=== PATIENT | male | born 1965 | race Hispanic/Latino ===

== ENCOUNTER 2018-09-18 13:52 | Inpatient (IN) | payer SELFPAY ==
[~2018-09-18 13:52] MED LIST: ISOVUE-370 76%-LOCM 1 ML ONE; Iopamidol 300 61% 100 ML VIAL FS ONE; Iopamidol 300 61% 50 ML VIAL FS ONE
[2018-09-18 14:13] LABS: #Eosinphils 0.1 thou/uL (0.0-0.7); #Lymphocytes 2.4 thou/uL (1.20-3.40); #Neutrophils 11.7 thou/uL (1.40-6.50); %Basophils 0.3 % (0.0-1.0); %Eosinophils 0.6 % (0.0-10.0); %Lymphocytes 15.8 % (21.0-51.0); %Monocytes 6.5 % (0.0-10.0); %Neutrophils 76.9 % (42.0-75.0); Hemoglobin 16.1 g/dL (14.0-18.0); Mean Corpuscular HGB CONC 32.9 g/dL (32.0-36.0); Mean Corpuscular Volume 97.4 fL (78.0-98.0); Mean Platelet Volume 7.8 fL (7.4-10.4); Platelet Count 241 thou/uL (130-400); RBC Distribution Width 11.8 % (11.5-14.5); Red Blood Cell (RBC) Count 5.03 mill/uL (4.70-6.10); White Blood Cell (WBC) Count 15.2 thou/uL (4.8-10.8)
[2018-09-18 14:19] LABS: INR-International Normal Ratio 1.1; PTT 29.5 SEC (22.9-36.1); Prothrombin Time 14.3 SEC (12.0-14.7)
[2018-09-18 14:34] LABS: ALT (SGPT) 17 U/L (8-55); AST (SGOT) 19 U/L (5-34); Albumin 4.2 g/dL (3.5-5.0); Alkaline Phosphatase 83 U/L (40-150); Anion Gap 16 mmol/L (10-20); BUN (Urea Nitrogen) 12 mg/dL (8.4-25.7); Bilirubin, Total 0.6 mg/dL (0.2-1.2); Calc. Creatinine Clearance 0 mL/min (70-130); Calcium 9.4 mg/dL (7.8-10.44); Carbon Dioxide 24 mmol/L (22-29); Chloride 104 mmol/L (98-107); Estimated GFR-MDRD Greater than 90; Globulin 3.1 g/dL (2.4-3.5); Glucose 146 mg/dL (70-105); Lipase 29 U/L (8-78); Potassium 3.8 mmol/L (3.5-5.1); Protein, Total 7.3 g/dL (6.0-8.3); Sodium 140 mmol/L (136-145)
[2018-09-18] MEDS ORDERED: Fentanyl 100 MCG/2 ML VIAL ONE ×4 (14:52→17:10)
--- NOTE | 2018-09-18 14:55 | RAD ---
PELVIS 1 VIEW: HISTORY: Trauma. COMPARISON: CT abdomen and pelvis same day. FINDINGS: There is widening of the pubic symphysis. There is widening of the right posterior and anterior SI j oint. Fractures of the right transverse processes of L3, L4, L5 and left L1-L3. IMPRESSION: AP 3 compression fracture of the pelvis with widened pubic symphysis as well as right anterior and po sterior sacroiliac joints. POS: [facility]
--- NOTE | 2018-09-18 14:57 | RAD ---
AP PELVIS 1 VIEW: HISTORY: Post reduction. COMPARISON: 09/18/2018 prior study and abdomen and pelvic CT scan. FINDINGS: Contrast media is noted within the collecting systems and urinary bladder. There is still some abnor mal widening of the pubic symphysis and right SI joint, but less prominent than on the initial study of 09/18/2018 at 2:05 p.m. IMPRESSION: Abnormal widening of the symphysis pubis and right sacroiliac joint but slightly improved from prior study. Iodinated contrast within the renal upper collecting systems, ureters, and urinary bladder. POS: [facility]
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
[2018-09-18] MEDS ORDERED: Heparin 10,000 UNITS/ 10 ML VIAL ONE (15:07)
[2018-09-18] MEDS ORDERED: Lidocaine 1% PF 5 ML VIAL ONE (15:07)
[2018-09-18] MEDS ORDERED: PHENYLEPHRINE-NS 100 MCG/ML 10 ML SYRINGE ONE (15:07)
[2018-09-18] MEDS ORDERED: PROPOFOL 200 MG/20 ML VIAL ONE (15:07)
[2018-09-18] MEDS ORDERED: Rocuronium Bromide 10 MG/ML (10ML VIAL) ONE (15:07)
[2018-09-18] MEDS ORDERED: Glycopyrrolate 0.2 MG/ML 5 ML SYRINGE ONE (15:08)
[2018-09-18] MEDS ORDERED: ePHEDrine 50 MG/ML VIAL ONE (15:08)
[2018-09-18] MEDS ORDERED: Vecuronium 10 MG VIAL ONE (15:08)
[2018-09-18] MEDS ORDERED: Ondansetron PF 4 MG/2 ML Vial ONE (15:08)
[2018-09-18] MEDS ORDERED: Ketorolac Tromethamine 30 MG/ML VIAL ONE (15:08)
[2018-09-18] MEDS ORDERED: Heparin 5,000 UNITS/ML VIAL ONE (16:01)
[2018-09-18] MEDS ORDERED: Famotidine/PF 20 mg/2ml Vial ONE (16:12)
[2018-09-18] MEDS ORDERED: Heparin 10,000 UNITS/1 ML VIAL 30,000 UNITS in Sodium Chloride 0.9% 1,000 ML IVPB SCH (16:45)
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
[2018-09-18] MEDS ORDERED: Albumin 5% 500 ML ONE (17:02)
[2018-09-18] MEDS ORDERED: Midazolam HCl 2 mg/2 ml Vial ONE (17:10)
[2018-09-18] MEDS ORDERED: Protamine Sulfate 50 MG/5 ML VIAL ONE (17:48)
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
[2018-09-18] MEDS ORDERED: Ampicillin/Sulbactam 3 GM in Sodium Chloride 0.9% 100 ML IVPB SCH (18:00)
[2018-09-18] MEDS ORDERED: Dextrose 50% Abboject 50 ML SYRINGE SLOW IVP PRN (20:52)
[2018-09-18] MEDS ORDERED: Dextrose 5% in Water 1,000 ML IV PRN (20:52)
[2018-09-18] MEDS ORDERED: HumaLOG 300 UNITS/3 ML VIAL SC PRN (20:52)
[2018-09-18] MEDS ORDERED: Ondansetron PF 4 MG/2 ML Vial IVP PRN (20:57)
[2018-09-18] MEDS ORDERED: diphenhydrAMINE 50 MG/ML VIAL IVP PRN (20:57)
[2018-09-18] MEDS ORDERED: diphenhydrAMINE 25 MG CAP PO PRN (20:57)
[2018-09-18] MEDS ORDERED: diphenhydrAMINE 50 MG/ML VIAL IM PRN (20:57)
[2018-09-18] MEDS ORDERED: Promethazine HCl 25 MG/ML VIAL IM PRN (20:57)
[2018-09-18] MEDS ORDERED: Naloxone HCl 0.4 mg/ml Vial IV PRN (20:57)
[2018-09-18] MEDS ORDERED: Communication Order-Pharmacy FS SCH (21:00)
--- NOTE | 2018-09-18 21:13 | RAD ---
SEVENTEEN FLUOROSCOPIC SPOT IMAGES OF THE PELVIS: INDICATIONS: Possible foreign body in the pelvis and abdominal cavity. FINDINGS: The first images demonstrate instrumentation involving the symphysis pubis. There is a suspected jessica gical sponge seen to the right of midline, in the lower pelvis. There is a Tate catheter projecting in the region of the bladder. Subsequent images demonstrate removal of the sponge. The Tate azalea ter and instrumentation involving the symphysis pubis is unchanged. Subsequent images of the abdomen demonstrate a nonobstructive bowel gas pattern. There is a surgical drain within the lower pelvis. There is an ostomy in the right lower quadrant of the abdomen. Total fluoroscopic time is 18.8 seconds. Total exposure is 4.83 mGy. IMPRESSION: 1. Intraoperative C-arm evaluation for intraabdominal and intrapelvic foreign body. There was a lap arotomy sponge present within the right aspect of the pelvis that was removed on subsequent images. 2. Intraabdominal drain and right lower quadrant ostomy. 3. Interval operative fixation of the symphysis pubis when compared to prior Anterior-posterior view of the pelvis, dated 09/18/2018. POS: [facility]
[2018-09-18] MEDS: HYDROmorphone 10 mg/100 ml CADD IVPB PRN (21:35)
[2018-09-18] MEDS: Lactated Ringer's 1,000 ML IV SCH (21:42)
[2018-09-18 22:23] VITALS: BMI 33.3
[2018-09-18] MEDS: Oxazepam 10 MG CAP PO SCH (22:28)
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
[2018-09-19] MEDS: Ketorolac Tromethamine 30 MG/ML VIAL IVP SCH ×5 (00:40→23:46)
[2018-09-19 04:48] LABS: Phosphorus 3.3 mg/dL (2.3-4.7)
[2018-09-19 04:56] LABS: #Lymphocytes 0.7 thou/uL (1.20-3.40); #Monocytes 0.6 thou/uL (0.11-0.59); #Neutrophils 9.5 thou/uL (1.40-6.50); %Basophils 0.1 % (0.0-1.0); %Eosinophils 0.1 % (0.0-10.0); %Lymphocytes 6.4 % (21.0-51.0); %Monocytes 5.2 % (0.0-10.0); %Neutrophils 88.3 % (42.0-75.0); ALT (SGPT) 14 U/L (8-55); AST (SGOT) 21 U/L (5-34); Albumin 3.7 g/dL (3.5-5.0); Alkaline Phosphatase 48 U/L (40-150); Anion Gap 13 mmol/L (10-20); BUN (Urea Nitrogen) 12 mg/dL (8.4-25.7); Bilirubin, Total 1.2 mg/dL (0.2-1.2); Calc. Creatinine Clearance 100 mL/min (70-130); Calcium 8.3 mg/dL (7.8-10.44); Carbon Dioxide 23 mmol/L (22-29); Chloride 107 mmol/L (98-107); Estimated GFR-MDRD 81; Globulin 2.4 g/dL (2.4-3.5); Glucose 159 mg/dL (70-105); Hemoglobin 12.7 g/dL (14.0-18.0); Magnesium 1.5 mg/dL (1.6-2.6); Mean Corpuscular HGB CONC 33.5 g/dL (32.0-36.0); Mean Corpuscular Hemoglobin 32.7 pg (27.0-31.0); Mean Corpuscular Volume 97.4 fL (78.0-98.0); Platelet Count 202 thou/uL (130-400); Potassium 4.2 mmol/L (3.5-5.1); Protein, Total 6.1 g/dL (6.0-8.3); RBC Distribution Width 11.8 % (11.5-14.5); Sodium 139 mmol/L (136-145); White Blood Cell (WBC) Count 10.8 thou/uL (4.8-10.8)
[2018-09-19] MEDS: Lactated Ringer's 1,000 ML IV SCH ×3 (05:23→22:52)
[2018-09-19] MEDS ORDERED: Magnesium 2 GM/50 ML 2 GM in Premix Bag 1 BAG IVPB SCH ×2 (06:30→09:00)
[2018-09-19] MEDS ORDERED: Potassium Phosphate 15 MMOL in Sodium Chloride 0.9% 250 ML 250 ML IVPB SCH (07:30)
[2018-09-19] MEDS: Enoxaparin Sodium 40 MG/0.4 ML SYRINGE SC SCH (08:40)
[2018-09-19] MEDS: Thiamine 100 MG TAB PO SCH (08:40)
[2018-09-19] MEDS: Oxazepam 10 MG CAP PO SCH ×3 (08:40→20:05)
[2018-09-19] MEDS: Folic Acid 1 MG TAB PO SCH (08:40)
--- NOTE | 2018-09-19 11:47 | RAD ---
RETROGRADE URETHROGRAM: HISTORY: Patient with pelvic fracture. Evaluate for urethral injury. RADIATION DOSIMETRY: 2.5 minutes of fluoroscopy and DAP of uGy*^cm2. FINDINGS: The meatus of the penis was cleansed using a Betadine solution. The patient inserted a MissingLINK e tip-type adapter into the distal urethra at the tip of the penis. Retrograde injection was perform ed. Contrast filled the penile urethra and bulbous urethra. Contrast could not be retroflexed into the membranous or prostatic urethra. In addition, once the penile urethra was noted to be free of si gnificant injury, a 14 Serbian Tate catheter was introduced. Again, attempts were made to retrograde fill the more proximal portions of the urethra including the membranous and prostatic urethra. Desp ite several attempts, this was unsuccessful. Findings were discussed with Dr. Arreola. IMPRESSION: Normal-appearing bulbous and penile urethra with nonvisualization of the more proximal portion of the urethra. Contrast was seen filling the urinary bladder. No definite evidence of leakage seen on fl uoroscopy. POS: [facility] [place]
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
--- NOTE | 2018-09-19 12:54 | OP ---
DATE OF PROCEDURE: 09/18/2018 PREOPERATIVE DIAGNOSIS: Blunt abdominal trauma with right common iliac artery dissection and occlusion. PROCEDURES: Exploratory laparotomy, replace segment of common iliac artery with a 10 mm Hemashield graft. ASSISTANTS: Dr. Zamarripa and Dr. Arreola. ESTIMATED BLOOD LOSS: 300. DESCRIPTION OF PROCEDURE: After adequate anesthesia had been obtained, the patient was prepped and draped. Dr. Lockhart had a placed a Tate catheter prior to this and abdominal midline incision was then carried out from above to below the umbilicus. Abdominal cavity was entered and there was noted to be some blood in the abdomen. Brief exploration by Dr. Arreola demonstrated disruption of the sigmoid mesentery as well as some deserialization of the sigmoid colon. At that time, the structures were packed out of the way with a self retraining retractor and the right common iliac artery was exposed, carried down to the junction of the internal and external iliac arteries. After 5000 units of heparin, clamps were applied and the common iliac artery was dissected. Fresh thrombus was removed and then there was good backbleeding from the internal as well as external iliac arteries. After this had been done, the incision was carried proximally and distally to avoid any further disrupted intima. There was some plaque formation distally, which ultimately led to some difficulty with hemostasis. Proximal anastomosis was then performed with the Hemashield graft using a running 5-0 Prolene suture and a similar anastomosis completed distally. Following completion of that, multiple sutures were required posteriorly in the distal anastomosis to assist with closure where the graft and plaque are adjacent to each other. Following this, heparin was reversed with protamine. After obtaining good hemostasis, reperitonealization was carried out. Following this, I assisted Dr. Arreola with further abdominal exploration. At that time, the sigmoid colon was divided proximal and distal to the injury and removed from the field with stapler. The small bowel was run and a small rent in the small bowel was identified and closed with 2 layers of Lembert suture. Following this, Dr. Arreola and Dr. Reeder completed the procedure. Job ID: [id number]
[2018-09-19] MEDS: cefOXitin 2 GM in Sodium Chloride 0.9% 100 ML IVPB SCH ×2 (13:24→22:52)
[2018-09-20] MEDS: cefOXitin 2 GM in Sodium Chloride 0.9% 100 ML IVPB SCH (05:00)
[2018-09-20] MEDS: Ketorolac Tromethamine 30 MG/ML VIAL IVP SCH ×4 (05:02→23:16)
[2018-09-20 05:12] LABS: #Lymphocytes 0.6 thou/uL (1.20-3.40); #Monocytes 0.4 thou/uL (0.11-0.59); #Neutrophils 6.1 thou/uL (1.40-6.50); %Basophils 0.2 % (0.0-1.0); %Eosinophils 0.1 % (0.0-10.0); %Lymphocytes 8.8 % (21.0-51.0); %Monocytes 5.7 % (0.0-10.0); %Neutrophils 85.2 % (42.0-75.0); Hemoglobin 10.2 g/dL (14.0-18.0); Mean Corpuscular Hemoglobin 32.8 pg (27.0-31.0); Mean Corpuscular Volume 99.4 fL (78.0-98.0); Mean Platelet Volume 7.7 fL (7.4-10.4); Platelet Count 142 thou/uL (130-400); RBC Distribution Width 11.7 % (11.5-14.5); White Blood Cell (WBC) Count 7.1 thou/uL (4.8-10.8)
[2018-09-20 05:37] LABS: Anion Gap 10 mmol/L (10-20); BUN (Urea Nitrogen) 14 mg/dL (8.4-25.7); Calc. Creatinine Clearance 132 mL/min (70-130); Calcium 8.5 mg/dL (7.8-10.44); Carbon Dioxide 27 mmol/L (22-29); Chloride 105 mmol/L (98-107); Estimated GFR-MDRD Greater than 90; Glucose 127 mg/dL (70-105); Magnesium 2.3 mg/dL (1.6-2.6); Phosphorus 1.9 mg/dL (2.3-4.7); Potassium 3.8 mmol/L (3.5-5.1); Sodium 138 mmol/L (136-145)
[2018-09-20] MEDS: Lactated Ringer's 1,000 ML IV SCH ×3 (06:16→23:17)
[2018-09-20] MEDS ORDERED: Potassium Phosphate 30 MMOL in Sodium Chloride 0.9% 500 ML IVPB SCH (07:15)
[2018-09-20] MEDS ORDERED: Potassium Phosphate 30 MMOL in Sodium Chloride 0.9% 250 ML 250 ML IVPB SCH (07:30)
--- NOTE | 2018-09-20 07:53 | EKG ---
Test Reason : Blood Pressure : / mmHG Vent. Rate : 096 BPM Atrial Rate : 096 BPM P-R Int : 132 ms QRS Dur : 094 ms QT Int : 316 ms P-R-T Axes : 040 017 011 degrees QTc Int : 399 ms Normal sinus rhythm Nonspecific T wave abnormality Abnormal ECG No previous ECGs available Confirmed by RIA ROBERTS ([id number]) on 09/20/2018 7:53:10 AM Referred By: ANDREW Confirmed By:RIA ROBERTS
[2018-09-20] MEDS ORDERED: Fentanyl 100 MCG/2 ML VIAL ONE (08:53)
[2018-09-20] MEDS ORDERED: CEFAZOLIN/Water 2 GM/20 ML SYRINGE SLOW IVP SCH (09:30)
[2018-09-20] MEDS: Folic Acid 1 MG TAB PO SCH (09:31)
[2018-09-20] MEDS: Enoxaparin Sodium 40 MG/0.4 ML SYRINGE SC SCH (09:31)
[2018-09-20] MEDS: Oxazepam 10 MG CAP PO SCH ×3 (09:31→20:41)
[2018-09-20] MEDS: Thiamine 100 MG TAB PO SCH (09:32)
[2018-09-20] MEDS ORDERED: CEFAZOLIN 2 GM in Premix Bag 1 BAG IVPB SCH (10:15)
--- NOTE | 2018-09-20 10:18 | PRG ---
DATE OF SERVICE: 09/20/2018 SUBJECTIVE: Mr. Florence is a 53-year-old man, who suffered a crush injury to the lower abdomen and pelvis. He is postoperative day #2, status post repair of right iliac artery injury, ORIF of pubic symphysis fractures, segmental sigmoidectomy, end colostomy and enterorrhaphy x1. The patient is awake and alert today. He reports adequate pain control. Urinary output is adequate. OBJECTIVE: VITAL SIGNS: Today includes blood pressure 135/83, pulse is 116, temperature is 98.3 degrees Fahrenheit, which is the maximum temperature in the last 24 hours, respiratory rate is 15, oxygen saturation is 97% on 2 L by nasal cannula oxygen. HEART: Reveals regular rate with sinus tachycardia. No murmurs or gallops auscultated. LUNGS: Clear to auscultation bilaterally. Breathing regular and unlabored. ABDOMEN: Soft and nondistended. Incision is intact, clean, dry. Colostomy is viable. No output of stool or gas at the moment. Wiliam-Francois drain returns scant output of serous fluid. LABORATORY FINDINGS: Today include a CBC with 7100 white blood cells, hemoglobin and hematocrit 10.2 and 30.8 respectively and platelet count is 142,000. Metabolic profile: Sodium 138, potassium is 3.8, chloride is 105, bicarb is 27, BUN 14, creatinine is 0.73, glucose is 127, magnesium 2.3, phosphorus is 1.9. IMPRESSION: 1. Post injury and postoperative day #2, status post crush injury to the lower abdomen and pelvis and repair of right iliac, pubic symphysis, sigmoid and small-bowel injuries. 2. Stable acute blood loss anemia. 3. Acute hypomagnesemia. 4. Acute hypokalemia. PLAN: 1. Correct abnormal electrolytes. 2. The patient is hemodynamically stable to proceed to surgery for completion of the staged repair of the pelvic fractures. 3. Above findings and plan discussed with the patient through a bull riveter. 4. He indicates understanding of the information given. I have answered his questions. Job ID: [id number]
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
--- NOTE | 2018-09-20 12:22 | RAD ---
THREE VIEWS PELVIS: Date: 09-20-18 Provided Clinical History: ORIF pelvis. FINDINGS: Correlation is made with the pelvic radiographs performed 09-18-18. Interval placement of cannulated, threaded screws traversing the right sacroiliac joint. Symphyseal p late and screws fixation is redemonstrated. IMPRESSION: As above. POS: [facility]
[2018-09-20] MEDS: cefOXitin Sodium/Dextrose,Iso 2 GM in Premix Bag 1 BAG IVPB SCH ×2 (14:15→21:23)
[2018-09-20] MEDS: HYDROmorphone 10 mg/100 ml CADD IVPB PRN (14:52)
[2018-09-20] MEDS ORDERED: Ketorolac Tromethamine 30 MG/ML VIAL ONE (15:27)
[2018-09-20] MEDS ORDERED: PROPOFOL 200 MG/20 ML VIAL ONE (15:27)
[2018-09-20] MEDS ORDERED: Dexamethasone 20 MG/5 ML VIAL ONE (15:27)
[2018-09-20] MEDS ORDERED: Rocuronium Bromide 10 MG/ML (10ML VIAL) ONE (15:27)
[2018-09-20] MEDS ORDERED: Glycopyrrolate 0.2 MG/ML 5 ML SYRINGE ONE (15:27)
[2018-09-20] MEDS ORDERED: Ondansetron PF 4 MG/2 ML Vial ONE (15:27)
[2018-09-20] MEDS ORDERED: PHENYLEPHRINE-NS 100 MCG/ML 10 ML SYRINGE ONE (15:27)
[2018-09-21] MEDS: cefOXitin Sodium/Dextrose,Iso 2 GM in Premix Bag 1 BAG IVPB SCH ×3 (05:01→21:08)
[2018-09-21] MEDS: Lactated Ringer's 1,000 ML IV SCH ×3 (05:02→14:38)
[2018-09-21 05:27] LABS: #Lymphocytes 0.6 thou/uL (1.20-3.40); #Monocytes 0.5 thou/uL (0.11-0.59); #Neutrophils 10.4 thou/uL (1.40-6.50); %Eosinophils 0.1 % (0.0-10.0); %Lymphocytes 5.1 % (21.0-51.0); %Monocytes 4.1 % (0.0-10.0); %Neutrophils 90.8 % (42.0-75.0); Hemoglobin 9.2 g/dL (14.0-18.0); Mean Corpuscular HGB CONC 32.9 g/dL (32.0-36.0); Mean Corpuscular Hemoglobin 32.1 pg (27.0-31.0); Mean Corpuscular Volume 97.4 fL (78.0-98.0); Platelet Count 183 thou/uL (130-400); RBC Distribution Width 11.3 % (11.5-14.5); Red Blood Cell (RBC) Count 2.86 mill/uL (4.70-6.10); White Blood Cell (WBC) Count 11.4 thou/uL (4.8-10.8)
[2018-09-21 05:53] LABS: Anion Gap 12 mmol/L (10-20); BUN (Urea Nitrogen) 11 mg/dL (8.4-25.7); Calc. Creatinine Clearance 136 mL/min (70-130); Carbon Dioxide 27 mmol/L (22-29); Chloride 103 mmol/L (98-107); Estimated GFR-MDRD Greater than 90; Glucose 131 mg/dL (70-105); Magnesium 2.1 mg/dL (1.6-2.6); Phosphorus 3.1 mg/dL (2.3-4.7); Potassium 4.2 mmol/L (3.5-5.1); Sodium 138 mmol/L (136-145)
[2018-09-21] MEDS ORDERED: PHOS-NAK 1 PKT PACK PO SCH (06:45)
[2018-09-21] MEDS: Enoxaparin Sodium 40 MG/0.4 ML SYRINGE SC SCH (08:54)
[2018-09-21] MEDS: Thiamine 100 MG TAB PO SCH (08:54)
[2018-09-21] MEDS: Folic Acid 1 MG TAB PO SCH (08:54)
[2018-09-21] MEDS: Oxazepam 10 MG CAP PO SCH ×3 (08:54→21:08)
[2018-09-21] MEDS ORDERED: traMADol HCl 50 MG TAB PO PRN ×2 (11:12)
[2018-09-21] MEDS: Acetaminophen 500 MG TAB PO SCH ×2 (11:54→17:37)
[2018-09-21] MEDS: Ibuprofen 600 MG TAB PO SCH ×2 (14:35→21:08)
--- NOTE | 2018-09-21 14:53 | PRG ---
DATE OF SERVICE: 09/21/2018 SUBJECTIVE: The patient was seen this morning, ambulating with a walker with PT. He is nonweightbearing on the right lower extremity, but he was able to use a walker and his left lower extremity to get up from the bed, go around the bed, and sit on a chair. He denies any nausea or vomiting. There has been no significant output from his ostomy. Nursing reports no gas or stool present. NG tube has been placed and to low intermittent wall suction. He has been taking sips and eating ice chips but with NG tube suction as well. He reports pain is well controlled and has no complaints this morning. He is postoperative day 1 for right SI screw placement. PHYSICAL EXAMINATION: VITAL SIGNS: Temperature 97.5, pulse 96, respirations 15, oxygen saturation 92% on room air, and blood pressure 144/80. GENERAL: Well-appearing middle-aged male, sitting up in chair with NG tube in place. PULMONARY: Equal chest rise and fall. No acute signs of distress. Lung sounds clear bilaterally. CARDIAC: Regular rate and rhythm. No murmurs, gallops, or rubs. ABDOMEN: Midline abdominal wound is clean, dry, and intact. There is a ARJUN drain to the right abdomen which has serosanguineous output. Colostomy with small amount of red liquid in bag. No stool or gas present. Soft, nontender, and nondistended. EXTREMITIES: Gross motor and sensation intact in all 4 extremities. 2+ pulses in all extremities. No significant swelling noted. LABORATORY FINDINGS: White count 11.4, hemoglobin 9.2, hematocrit 27.9, and platelets 138. Sodium 138, potassium 4.2, chloride 103, carbon dioxide 27, BUN 11, creatinine 0.71, glucose 131, phos 3.1, and magnesium 2.1. DIAGNOSTIC FINDINGS: There are no diagnostic findings to report. ASSESSMENT: 1. Status post crush injury to pelvis. 2. 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 3. Small bowel perforation. 4. Mesenteric artery injury with active extravasation. 5. Ischemic sigmoid colon. 6. Disrupted pubic symphysis and unstable right iliac joint. 7. Right L3-L5 transverse process fractures and left L3 transverse process fracture. 8. Acute traumatic pain. 9. History of alcohol abuse. PLAN: The patient is status post op day 1 and 3. He appears to have good blood flow to his right lower extremity. He has not yet produced significant gas or output, but we will clamp his NG tube today and change him to a clear liquid diet. We will also discontinue the Dilaudid PLUMBING INSPECTOR. Start him on p.o. pain medications. We will continue to keep the Tate in place per the recommendations of Dr. Lockhart as he is a high risk for developing a neurogenic bladder with his injuries. There are no further surgical interventions planned at this time. All of his injuries have been addressed. We will wean his oxygen today as well as replace his phosphorus. He will continue to receive supportive care as well as physical and occupational therapy. The patient is uninsured and is going to be difficult to place him at a rehab facility. [employer] has discussed the possibility of sending patient to [facility] for swing bed. The patient may be able to eventually go home if he has good help at home as he is uninsured and it is likely that he will be accepted at any other facility. The patient was discussed with Dr. Arreola this morning. Job ID: [id number]
[2018-09-22] MEDS: Lactated Ringer's 1,000 ML IV SCH ×3 (00:24→16:53)
[2018-09-22] MEDS: Acetaminophen 500 MG TAB PO SCH ×4 (00:24→17:35)
[2018-09-22 03:19] LABS: #Lymphocytes 1.1 thou/uL (1.20-3.40); #Monocytes 0.6 thou/uL (0.11-0.59); #Neutrophils 7.1 thou/uL (1.40-6.50); %Basophils 0.5 % (0.0-1.0); %Eosinophils 0.3 % (0.0-10.0); %Lymphocytes 12.7 % (21.0-51.0); %Monocytes 6.4 % (0.0-10.0); Hemoglobin 9.2 g/dL (14.0-18.0); Mean Corpuscular HGB CONC 33.5 g/dL (32.0-36.0); Mean Corpuscular Hemoglobin 32.9 pg (27.0-31.0); Mean Corpuscular Volume 98.2 fL (78.0-98.0); Mean Platelet Volume 7.3 fL (7.4-10.4); Platelet Count 222 thou/uL (130-400); RBC Distribution Width 11.4 % (11.5-14.5); White Blood Cell (WBC) Count 8.9 thou/uL (4.8-10.8)
[2018-09-22 03:39] LABS: Anion Gap 10 mmol/L (10-20); BUN (Urea Nitrogen) 16 mg/dL (8.4-25.7); Calc. Creatinine Clearance 129 mL/min (70-130); Calcium 8.9 mg/dL (7.8-10.44); Carbon Dioxide 32 mmol/L (22-29); Chloride 102 mmol/L (98-107); Estimated GFR-MDRD Greater than 90; Glucose 108 mg/dL (70-105); Magnesium 1.7 mg/dL (1.6-2.6); Phosphorus 2.9 mg/dL (2.3-4.7); Potassium 3.1 mmol/L (3.5-5.1); Sodium 141 mmol/L (136-145)
[2018-09-22] MEDS: Ibuprofen 600 MG TAB PO SCH ×3 (05:30→21:17)
[2018-09-22] MEDS: cefOXitin Sodium/Dextrose,Iso 2 GM in Premix Bag 1 BAG IVPB SCH ×3 (05:30→21:17)
[2018-09-22] MEDS: Enoxaparin Sodium 40 MG/0.4 ML SYRINGE SC SCH (08:21)
[2018-09-22] MEDS: Thiamine 100 MG TAB PO SCH (08:21)
[2018-09-22] MEDS: Oxazepam 10 MG CAP PO SCH ×3 (08:21→21:17)
[2018-09-22] MEDS: Folic Acid 1 MG TAB PO SCH (08:21)
--- NOTE | 2018-09-22 18:55 | PRG ---
DATE OF SERVICE: 09/22/2018 SUBJECTIVE: The patient is currently on the surgical floor he is status post crush injury, which he sustained a right common iliac dissection and occlusion of the right iliac artery, which he underwent emergent repair of. He also sustained a small-bowel perforation, mesenteric artery injury with active extravasation, and ischemic sigmoid colon, a disrupted pubic symphysis, and unstable right iliac joint, which he has undergone repair of. The patient has had an NG tube in place and has been n.p.o. currently. He denies any pain at this time. He has just started working with Physical and Occupational therapy. PHYSICAL EXAMINATION: VITAL SIGNS: Temperature is 98.4, heart rate 74, respirations 18, oxygen saturation 92% on room air, and blood pressure 152/86. GENERAL: The patient is resting comfortably in bed. He is awake and conversant with use of a die inspector. LUNGS: Clear to auscultation with good inspiratory and expiratory effort. HEART: Regular rate and rhythm. ABDOMEN: Soft and nontender. His dressing is clean, dry, and intact. The colostomy has air in the bag and a small amount of stool present. EXTREMITIES: Neurovascularly intact x4. LABORATORY FINDINGS: White blood cell count 8.9, hemoglobin 9.2, hematocrit 27.5, and platelets 222. Sodium 141, potassium 3.1, chloride 102, CO2 of 32, BUN 16, creatinine 0.75, glucose 108. Magnesium 1.7. Phosphorus 2.9. There are no radiographs to review this morning. ASSESSMENT AND PLAN: 1. Status post crush injury with above stated injuries. 2. Hypokalemia. PLAN: Plan will be to discontinue his NG tube. Start a clear liquid diet. Discontinue his Tate. Encourage ambulation. Protonix and saline lock. We will re-evaluate the patient again tomorrow, likely discontinue his ARJUN tomorrow, and start discussing placement with the patient. The patient was evaluated and examined with Dr. Arreola this morning during rounds. Job ID: [id number]
[2018-09-23] MEDS: Acetaminophen 500 MG TAB PO SCH ×5 (00:11→23:12)
[2018-09-23] MEDS: Lactated Ringer's 1,000 ML IV SCH ×3 (00:14→18:04)
[2018-09-23] MEDS: cefOXitin Sodium/Dextrose,Iso 2 GM in Premix Bag 1 BAG IVPB SCH ×3 (05:20→21:25)
[2018-09-23] MEDS ORDERED: Ondansetron PF 4 MG/2 ML Vial IVP PRN (05:43)
[2018-09-23 05:46] LABS: #Eosinphils 0.1 thou/uL (0.0-0.7); #Lymphocytes 1.2 thou/uL (1.20-3.40); #Monocytes 0.9 thou/uL (0.11-0.59); #Neutrophils 8.5 thou/uL (1.40-6.50); %Basophils 0.1 % (0.0-1.0); %Eosinophils 0.7 % (0.0-10.0); %Monocytes 8.1 % (0.0-10.0); %Neutrophils 80.2 % (42.0-75.0); Hemoglobin 10.7 g/dL (14.0-18.0); Mean Corpuscular HGB CONC 33.8 g/dL (32.0-36.0); Mean Corpuscular Volume 97.4 fL (78.0-98.0); Mean Platelet Volume 7.2 fL (7.4-10.4); Platelet Count 261 thou/uL (130-400); RBC Distribution Width 11.4 % (11.5-14.5); Red Blood Cell (RBC) Count 3.23 mill/uL (4.70-6.10); White Blood Cell (WBC) Count 10.6 thou/uL (4.8-10.8)
[2018-09-23] MEDS ORDERED: Ondansetron PF 4 MG/2 ML Vial IVP SCH (06:00)
[2018-09-23] MEDS ORDERED: Ondansetron ODT 4 MG TAB PO PRN (06:01)
[2018-09-23 06:05] LABS: Anion Gap 14 mmol/L (10-20); BUN (Urea Nitrogen) 13 mg/dL (8.4-25.7); Calc. Creatinine Clearance 144 mL/min (70-130); Calcium 9.1 mg/dL (7.8-10.44); Carbon Dioxide 25 mmol/L (22-29); Chloride 102 mmol/L (98-107); Estimated GFR-MDRD Greater than 90; Glucose 119 mg/dL (70-105); Magnesium 1.6 mg/dL (1.6-2.6); Phosphorus 3.4 mg/dL (2.3-4.7); Potassium 3.3 mmol/L (3.5-5.1); Sodium 138 mmol/L (136-145)
[2018-09-23] MEDS: Ibuprofen 600 MG TAB PO SCH ×3 (06:09→21:24)
[2018-09-23] MEDS: Enoxaparin Sodium 40 MG/0.4 ML SYRINGE SC SCH (08:28)
[2018-09-23] MEDS: Thiamine 100 MG TAB PO SCH (08:28)
[2018-09-23] MEDS: Folic Acid 1 MG TAB PO SCH (08:28)
[2018-09-23] MEDS: Oxazepam 10 MG CAP PO SCH ×3 (08:28→21:24)
[2018-09-23] MEDS: Pantoprazole 40 MG VIAL IVP SCH (08:30)
--- NOTE | 2018-09-23 12:38 | PRG ---
DATE OF SERVICE: 09/23/2018 SUBJECTIVE: The patient remains on the surgical floor. He did well overnight. He states that he had some nausea with his clear liquids, but had no emesis. The patient is status post crush injury which he sustained a small bowel perforation, vascular injuries to his pelvis, and multiple other injuries. The patient had his orthopedic injuries repaired and is working with Physical and Occupational Therapy. His ostomy site looks very good and has a fair amount of stool and gas in his bag. OBJECTIVE: VITAL SIGNS: Temperature is 98.2, heart rate 78, blood pressure 137/89, respirations 22, oxygen saturation 97% on room air. GENERAL: The patient is resting comfortably in bed. He is awake, alert and conversant. He does speak some Hebrew, but we used the assistance of a director supplier quality also. Physical therapies told that he walked 100 feet yesterday. HEENT: Unremarkable. LUNGS: Clear to auscultation with good inspiratory and expiratory effort. HEART: Regular rate and rhythm. ABDOMEN: Soft with active bowel sounds. ARJUN had 45 mL of serosanguineous fluid. His ostomy site looks good/matured and functioning. Again, there was a fair amount of stool and gas present. EXTREMITIES: Neurovascularly intact x4. LABORATORY FINDINGS: White blood cell count 10.6, hemoglobin 10.7, hematocrit 31.5, platelets 261. Sodium 138, potassium 3.3, chloride 102, CO2 of 25, BUN 13, creatinine 0.67, glucose 119, magnesium 1.6, phosphorus 3.4. There are no radiographs reviewed this morning. ASSESSMENT: 1. Status post crush injury to pelvis. 2. 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 3. Small bowel perforation. 4. Mesenteric artery injury with active extravasation. 5. Ischemic sigmoid colon. 6. Disrupted pubic symphysis and unstable right iliac joint. 7. Right L3, L4, and L5 transverse process fractures. 8. Acute traumatic pain. 9. History of alcohol abuse. PLAN: Plan will be to continue supportive care, progress with Physical and Occupational Therapy and slowly advance the patient's diet. The patient continues to progress and may be able to go home as early as tomorrow, though Tuesday as a more likely target. Job ID: [id number]
--- NOTE | 2018-09-23 14:01 | PRG ---
DATE OF SERVICE: 09/23/2018 SUBJECTIVE: The patient states he is feeling fine. He is not having any significant pain. He states that his catheter was already removed yesterday and he has been voiding spontaneously on his own without any difficulty or hematuria. OBJECTIVE: VITAL SIGNS: Temperature 98.5, pulse 79, respirations 20, blood pressure 131/79, and saturation 97% on room air. GENERAL: No apparent distress, communicating, and alert. CARDIOVASCULAR: Regular rate and rhythm. CHEST: No increased work of breathing. Symmetric expansion of lungs. ABDOMEN: Large midline incision, which is clean, dry, and intact, healing appropriately. Colostomy in place with stool in the bag. Soft, minimally tender to palpation. ARJUN drain in place with serosanguinous fluid. : Nonfocal. There is no catheter in place. The patient has urinal at his bedside. EXTREMITIES: No significant clubbing, cyanosis, or edema. LABORATORY EVALUATION: The full set of labs are in the [facility] system, which I have reviewed. Of note, the patient's white count is 10.6 with a hemoglobin of 10.7. Creatinine is 0.67. ASSESSMENT AND PLAN: A 53-year-old male with pelvic crush injury, status post orthopedic repair as well as internal hernia, which has been corrected with resection of bowel. The patient did have urinary retention and concern for a possible urethral injury, which has been evaluated by Dr. Lockhart and found not to be present. His catheter has already been removed and he is voiding spontaneously without problem or hematuria. As such, I am not sure that there is anything further that we are providing at this point. I will be available if necessary, but no further recommendations are really needed for me at this time. The patient can follow up with Dr. Lockhart as an outpatient if there are any ongoing urologic issues that need to be addressed. Job ID: [id number]
[2018-09-24] MEDS: Lactated Ringer's 1,000 ML IV SCH ×3 (02:58→23:07)
[2018-09-24] MEDS: Acetaminophen 500 MG TAB PO SCH ×4 (05:29→23:04)
[2018-09-24] MEDS: cefOXitin Sodium/Dextrose,Iso 2 GM in Premix Bag 1 BAG IVPB SCH ×3 (05:29→21:21)
[2018-09-24] MEDS: Ibuprofen 600 MG TAB PO SCH ×3 (05:30→21:21)
[2018-09-24] MEDS: Thiamine 100 MG TAB PO SCH (08:14)
[2018-09-24] MEDS: Oxazepam 10 MG CAP PO SCH ×3 (08:14→21:21)
[2018-09-24] MEDS: Folic Acid 1 MG TAB PO SCH (08:15)
[2018-09-24] MEDS: Pantoprazole 40 MG VIAL IVP SCH (08:16)
[2018-09-24] MEDS: Enoxaparin Sodium 40 MG/0.4 ML SYRINGE SC SCH (08:16)
--- NOTE | 2018-09-24 13:24 | PRG ---
DATE OF SERVICE: 09/24/2018 SUBJECTIVE: The patient remains on the surgical floor. He had no issues overnight. The patient has been progressing with physical and occupational therapy and tolerated his p.o. diet. The patient remained on clear liquids yesterday per his own request, as he was apprehensive about advancing his diet this morning, though he would like to try a regular diet. PHYSICAL EXAMINATION: VITAL SIGNS: Temperature is 97.8, heart rate 78, blood pressure 118/58, respirations 20, and oxygen saturation 97% on room air. GENERAL: The patient is resting comfortably in bed. He is awake, alert, and oriented x3. Liss Coma Scale is 15. HEENT: Unremarkable. LUNGS: Clear to auscultation with good inspiratory and expiratory effort. HEART: Regular rate and rhythm. ABDOMEN: Soft, flat, nontender. His ostomy site is intact and functioning. There is a stool and air noted in the bag. EXTREMITIES: Neurovascularly intact x4. LABORATORY DATA: There are no labs or radiographs reviewed this morning. ASSESSMENT: 1. Status post crush injury to pelvis. 2. 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 3. Small bowel perforation. 4. Mesenteric artery injury with active extravasation. 5. Ischemic sigmoid colon. 6. Disrupted pubic symphysis and unstable right iliac joint. 7. Right L3, L4, and L5 transverse process fractures. 8. The patient is status post exploratory laparotomy with segmental sigmoidectomy, end colostomy, and enterorrhaphy x1. The patient also is status post repair of right iliac artery injury and ORIF of pubic symphysis fractures and sacral fractures. PLAN: Plan will be to continue supportive care. Encourage diet, physical and occupational therapy, and tomorrow, we will discuss discharge planning. Job ID: [id number]
[2018-09-25] MEDS: cefOXitin Sodium/Dextrose,Iso 2 GM in Premix Bag 1 BAG IVPB SCH (05:56)
[2018-09-25] MEDS: Acetaminophen 500 MG TAB PO SCH ×4 (05:56→23:40)
[2018-09-25] MEDS: Ibuprofen 600 MG TAB PO SCH ×3 (05:56→21:02)
[2018-09-25] MEDS: Lactated Ringer's 1,000 ML IV SCH (06:35)
[2018-09-25 07:04] LABS: #Eosinphils 0.2 thou/uL (0.0-0.7); #Lymphocytes 1.3 thou/uL (1.20-3.40); #Monocytes 0.8 thou/uL (0.11-0.59); #Neutrophils 8.7 thou/uL (1.40-6.50); %Basophils 0.3 % (0.0-1.0); %Eosinophils 1.8 % (0.0-10.0); %Lymphocytes 11.6 % (21.0-51.0); %Monocytes 7.5 % (0.0-10.0); %Neutrophils 78.8 % (42.0-75.0); Mean Corpuscular HGB CONC 33.5 g/dL (32.0-36.0); Mean Corpuscular Hemoglobin 32.7 pg (27.0-31.0); Mean Corpuscular Volume 97.4 fL (78.0-98.0); Mean Platelet Volume 7.3 fL (7.4-10.4); Platelet Count 313 thou/uL (130-400); RBC Distribution Width 11.7 % (11.5-14.5); Red Blood Cell (RBC) Count 3.05 mill/uL (4.70-6.10)
[2018-09-25 07:25] LABS: Anion Gap 12 mmol/L (10-20); BUN (Urea Nitrogen) 14 mg/dL (8.4-25.7); Calc. Creatinine Clearance 144 mL/min (70-130); Calcium 8.9 mg/dL (7.8-10.44); Carbon Dioxide 25 mmol/L (22-29); Chloride 104 mmol/L (98-107); Estimated GFR-MDRD Greater than 90; Glucose 89 mg/dL (70-105); Magnesium 1.7 mg/dL (1.6-2.6); Phosphorus 2.6 mg/dL (2.3-4.7); Potassium 3.4 mmol/L (3.5-5.1); Sodium 138 mmol/L (136-145)
[2018-09-25] MEDS: Enoxaparin Sodium 40 MG/0.4 ML SYRINGE SC SCH (09:19)
[2018-09-25] MEDS: Oxazepam 10 MG CAP PO SCH ×3 (09:20→21:02)
[2018-09-25] MEDS: Pantoprazole 40 MG VIAL IVP SCH (09:20)
[2018-09-25] MEDS: Thiamine 100 MG TAB PO SCH (09:20)
[2018-09-25] MEDS: Folic Acid 1 MG TAB PO SCH (09:20)
--- NOTE | 2018-09-25 12:09 | PRG ---
DATE OF SERVICE: 09/25/2018 SUBJECTIVE: The patient is currently on the surgical floor. He had no issues overnight. This morning, it was noted that he had some dry blood on his mid abdominal incision and on his gown. Dressing was removed and it was noted that he had some discharge of thick serosanguineous fluid in 2 different areas of his incision, which were opened. Emmanuel were removed and small section of both areas. The wound was bluntly opened with a Q-tip, cleaned and then repacked with a wet dressing. Otherwise, the patient is tolerating a diet, and continues to work and progress with physical and occupational therapy. PHYSICAL EXAMINATION: VITAL SIGNS: Temperature is 98.2, heart rate 88, blood pressure 123/76, respirations 14, and oxygen saturation is 96% on room air. GENERAL: The patient is resting comfortably in bed. He is awake, alert, oriented, and conversant with the use of a supervisor paper coating. HEENT: Unremarkable. LUNGS: Clear to auscultation with good inspiratory and expiratory effort. HEART: Regular rate and rhythm. ABDOMEN: Midline incision is as above. Ostomy is functioning. There is stool and air in the bag. Again, the midline incision was clean and packed with a wet-to-dry dressing. EXTREMITIES: Neurovascularly intact x4. LABORATORY FINDINGS: White blood cell count 11.0, hemoglobin 10.0, hematocrit 29.7, and platelets 313. Sodium 138, potassium 3.4, chloride 104, CO2 of 25, BUN 14, creatinine 0.67, glucose 89, magnesium 1.7, and phosphorus 2.6. There are no radiographs to review this morning. ASSESSMENT: 1. Status post crush injury to the pelvis. 2. 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 3. Small bowel perforation. 4. Mesenteric artery injury with active extravasation. 5. Ischemic sigmoid colon. 6. Disrupted pubic symphysis and unstable right sacroiliac joint. 7. Right L3, L4 and L5 transverse process fractures. 8. The patient is status post exploratory laparotomy with segmental sigmoidectomy, end colostomy and enterorrhaphy x1. The patient has also undergone and is status post repair of his right iliac artery injury and open reduction and internal fixation of pubic symphysis fracture and sacral fractures. PLAN: Plan will be wet-to-dry dressings twice daily. We will switch the patient from his IV antibiotics to Augmentin for 5 more days. Continue physical and occupational therapy, and we will educate the family on ostomy and wound care, and likely discharge the patient tomorrow. The patient was evaluated with Dr. Arreola this morning during rounds. Job ID: [id number]
[2018-09-25] MEDS: Amoxicillin/Potassium Clav 875 MG TAB PO SCH (21:02)
[2018-09-26] MEDS: Ibuprofen 600 MG TAB PO SCH (06:01)
[2018-09-26] MEDS: Acetaminophen 500 MG TAB PO SCH ×2 (06:01→11:57)
[2018-09-26 08:22] VITALS: TEMP 97.9
[2018-09-26] MEDS: Folic Acid 1 MG TAB PO SCH (08:36)
[2018-09-26] MEDS: Thiamine 100 MG TAB PO SCH (08:36)
[2018-09-26] MEDS: Enoxaparin Sodium 40 MG/0.4 ML SYRINGE SC SCH (08:36)
[2018-09-26] MEDS: Oxazepam 10 MG CAP PO SCH (08:36)
[2018-09-26] MEDS: Amoxicillin/Potassium Clav 875 MG TAB PO SCH (08:36)
[2018-09-26] MEDS: Pantoprazole 40 MG VIAL IVP SCH (08:37)
[2018-09-26 11:24] VITALS: BP 123/71
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
[2018-10-03 14:11] LABS: Actual Bicarbonate (HCO3a) 20.9 mEq/L (22-28); Analyzer IN Cardio OR; CO2 Tension 37.5 mmHg (35.0-45.0); Calcium, Ionized 1.06 mmol/L (1.12-1.30); Carboxyhemoglobin (COHb) 0.6 gm% (0.0-3.0); Hemoglobin (Hb) 13.4 g/dL (14.0-18.0); O2 Tension (PaO2) 137.9 mmHg (80.0-100.0); Potassium - ABG Lab 3.76 mmol/L (3.70-5.30); Puncture Site ALINE; pH, Arterial 7.36 (7.35-7.45)
== END 2018-09-26 13:00 | disposition home or self-care (01) | DRG 958 ==
LOC: ERS 13:52 → SDC/OP 19:33 → CCU 20:52 → SURG A 09-20 13:29
PROVIDERS: ADMIT Surgery; ATTEND Surgery
PROC: 0T9B8ZZ Drainage of Bladder, Via Natural or Artificial Opening Endoscopic (ICD-10-PCS; principal; 2018-09-18)
PROC: 0QS204Z Reposition Right Pelvic Bone with Internal Fixation Device, Open Approach (ICD-10-PCS; 2018-09-18)
PROC: 0DBN0ZZ Excision of Sigmoid Colon, Open Approach (ICD-10-PCS; 2018-09-18)
PROC: 0D1N0Z4 Bypass Sigmoid Colon to Cutaneous, Open Approach (ICD-10-PCS; 2018-09-18)
PROC: 0DQB0ZZ Repair Ileum, Open Approach (ICD-10-PCS; 2018-09-18)
PROC: 04R Lower Arteries, Replacement (ICD-10-PCS; 2018-09-18)
PROC: 02HV33Z Insertion of Infusion Device into Superior Vena Cava, Percutaneous Approach (ICD-10-PCS; 2018-09-18)
PROC: 0SS734Z Reposition Right Sacroiliac Joint with Internal Fixation Device, Percutaneous Approach (ICD-10-PCS; 2018-09-20)
DX: S38.1XXA Crushing injury of abdomen, lower back, and pelvis, initial encounter (principal); S35.511A Injury of right iliac artery, initial encounter; D62 Acute posthemorrhagic anemia; S35.299A Unspecified injury of branches of celiac and mesenteric artery, initial encounter; S32.811A Multiple fractures of pelvis with unstable disruption of pelvic ring, initial encounter for closed fracture; S37.39XA Other injury of urethra, initial encounter; S36.438A Laceration of other part of small intestine, initial encounter; S36.593A Other injury of sigmoid colon, initial encounter; S32.028A Other fracture of second lumbar vertebra, initial encounter for closed fracture; S32.038A Other fracture of third lumbar vertebra, initial encounter for closed fracture; S32.048A Other fracture of fourth lumbar vertebra, initial encounter for closed fracture; S32.058A Other fracture of fifth lumbar vertebra, initial encounter for closed fracture; E87.6 Hypokalemia; E83.42 Hypomagnesemia; R40.2412 Glasgow coma scale score 13-15, at arrival to emergency department; W23.0XXA Caught, crushed, jammed, or pinched between moving objects, initial encounter; Y92.69 Other specified industrial and construction area as the place of occurrence of the external cause; Y99.0 Civilian activity done for income or pay
CPT/HCPCS: 27197; 36415; 36416; 36430; 51610; 72170; 72190; 74177; 74450; 76000; 80048; 80053; 82805; 83690; 83735; 84100; 85025; 85610; 85730; 86850; 86900; 86901; 88307; 93005; 93010; 94760; 96374; 96376; 99285; C1713; C1751; C1769; C9113; G0390; J0131; J0295; J0694; J1100; J1644; J1650; J1885; J2001; J2250; J2405; J2704; J2720; J3010; J3475; J3490; J7050; P9045; Q9966; Q9967; S0028

== ENCOUNTER 2019-05-07 09:34 | Inpatient (IN) | payer OTHER ==
[2019-05-07] MEDS ORDERED: Ketorolac Tromethamine 30 MG/ML VIAL ONE ×2 (10:27→12:39)
[2019-05-07] MEDS ORDERED: cefOXitin 2 GM VIAL ONE ×2 (10:28→14:11)
[2019-05-07] MEDS ORDERED: Sodium Chloride 0.9% 100 ML ONE (10:28)
[2019-05-07] MEDS ORDERED: cefTRIAXone\\ROCEPHIN 1 GM VIAL ONE (10:28)
[2019-05-07] MEDS ORDERED: Midazolam HCl 2 mg/2 ml Vial ONE ×2 (10:57→11:10)
[2019-05-07] MEDS ORDERED: Fentanyl 250 MCG/5 ML VIAL ONE (10:58)
[2019-05-07] MEDS ORDERED: Dexamethasone 4 mg/ml Vial ONE (11:10)
[2019-05-07] MEDS ORDERED: Fentanyl 100 MCG/2 ML VIAL ONE (11:10)
[2019-05-07 11:24] LABS: #Lymphocytes 1.5 thou/uL (1.20-3.40); #Monocytes 0.4 thou/uL (0.11-0.59); #Neutrophils 6.6 thou/uL (1.40-6.50); %Basophils 0.2 % (0.0-1.0); %Eosinophils 0.3 % (0.0-10.0); %Lymphocytes 17.8 % (21.0-51.0); %Monocytes 4.7 % (0.0-10.0); Hemoglobin 15.8 g/dL (14.0-18.0); Mean Corpuscular HGB CONC 33.8 g/dL (32.0-36.0); Mean Corpuscular Volume 91.7 fL (78.0-98.0); Mean Platelet Volume 7.7 fL (7.4-10.4); Platelet Count 256 thou/uL (130-400); RBC Distribution Width 12.2 % (11.5-14.5); White Blood Cell (WBC) Count 8.5 thou/uL (4.8-10.8)
[2019-05-07 11:43] LABS: Hemoglobin A1c 5.5 % (4.0-6.0)
[2019-05-07 11:45] LABS: Anion Gap 15 mmol/L (10-20); BUN (Urea Nitrogen) 8 mg/dL (8.4-25.7); Calc. Creatinine Clearance 106 mL/min (70-130); Carbon Dioxide 24 mmol/L (22-29); Chloride 104 mmol/L (98-107); Estimated GFR-MDRD Greater than 90; Glucose 129 mg/dL (70-105); Potassium 3.7 mmol/L (3.5-5.1); Sodium 139 mmol/L (136-145)
[2019-05-07] MEDS ORDERED: Bupivacaine HCl 0.5%/Epinephrine 1:200,000/PF 30 ml Vial ONE (12:25)
[2019-05-07] MEDS ORDERED: Ondansetron PF 4 MG/2 ML Vial ONE (12:39)
[2019-05-07] MEDS ORDERED: Lidocaine 1% PF 5 ML VIAL ONE (12:39)
[2019-05-07] MEDS ORDERED: Rocuronium Bromide 10 MG/ML (10ML VIAL) ONE (12:39)
[2019-05-07] MEDS ORDERED: Glycopyrrolate 0.2 MG/ML 5 ML SYRINGE ONE (12:39)
[2019-05-07] MEDS ORDERED: PROPOFOL 200 MG/20 ML VIAL ONE (12:39)
[2019-05-07] MEDS ORDERED: Rocuronium Bromide 50 MG/5 ML VIAL ONE (14:06)
[2019-05-07] MEDS ORDERED: SUGAMMADEX SODIUM 200 MG/2 ML VIAL ONE (15:35)
[2019-05-07] MEDS ORDERED: Promethazine HCl 25 MG/ML VIAL IM PRN (15:58)
[2019-05-07] MEDS ORDERED: Ondansetron HCl/PF 4 MG/2 ML Vial IVP PRN (15:58)
[2019-05-07] MEDS ORDERED: Promethazine HCl 25 MG/ML VIAL SLOW IVP PRN (15:58)
[2019-05-07] MEDS ORDERED: Sodium Chloride 0.9% 10 ML ONE (16:10)
[2019-05-07] MEDS ORDERED: Ondansetron PF 4 MG/2 ML Vial IVP PRN (16:38)
[2019-05-07] MEDS ORDERED: Insulin Regular 300 UNITS/3 ML VIAL SC PRN (16:38)
[2019-05-07] MEDS ORDERED: Dextrose 50% Abboject 50 ML SYRINGE SLOW IVP PRN (16:38)
[2019-05-07] MEDS ORDERED: Dextrose 5% in Water 1,000 ML IV PRN (16:38)
--- NOTE | 2019-05-07 16:48 | RAD ---
ABDOMEN ONE VIEW: INDICATIONS: Feeding tube evaluation. FINDINGS: There is a Dobhoff feeding tube with a metallic stylet overlying the left upper abdomen. On one of th e two provided views there is an additional enteric catheter with the tip terminating at the gastric fundus. Drainage catheter tubing overlies the lower abdomen/pelvis. Multiple metallic greta are pre sent. There are metallic screws overlying the midline of the pelvis. Partially imaged plate and screw fixation of the pubis spanning the midline. IMPRESSION: Dobhoff feeding tube with metallic stylet at the left upper quadrant. Additional enteric catheter is seen on one of the two provided views with the tip overlying the gastric fundal region. POS: [facility]
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
[2019-05-07] MEDS: Acetaminophen 1,000 MG in Premix Bag 1 BAG IVPB SCH ×2 (18:48→23:46)
[2019-05-07] MEDS: Sodium Chloride 0.9% 1,000 ML IV SCH (18:48)
[2019-05-07] MEDS: Famotidine/PF 20 mg/2ml Vial SLOW IVP SCH (20:16)
[2019-05-07] MEDS: cefOXitin 2 GM in Sodium Chloride 0.9% 100 ML IVPB SCH (21:48)
[2019-05-08] MEDS: Acetaminophen 1,000 MG in Premix Bag 1 BAG IVPB SCH ×3 (05:18→19:56)
[2019-05-08] MEDS: cefOXitin 2 GM in Sodium Chloride 0.9% 100 ML IVPB SCH ×3 (05:19→19:56)
[2019-05-08] MEDS: Sodium Chloride 0.9% 1,000 ML IV SCH ×3 (05:19→18:19)
[2019-05-08 06:13] LABS: #Monocytes 1.1 thou/uL (0.11-0.59); #Neutrophils 13.9 thou/uL (1.40-6.50); %Eosinophils 0.1 % (0.0-10.0); %Lymphocytes 6.1 % (21.0-51.0); %Monocytes 7.1 % (0.0-10.0); %Neutrophils 86.7 % (42.0-75.0); Hemoglobin 13.3 g/dL (14.0-18.0); Mean Corpuscular HGB CONC 34.4 g/dL (32.0-36.0); Mean Corpuscular Hemoglobin 32.1 pg (27.0-31.0); Mean Platelet Volume 7.7 fL (7.4-10.4); Platelet Count 235 thou/uL (130-400); RBC Distribution Width 12.2 % (11.5-14.5); Red Blood Cell (RBC) Count 4.14 mill/uL (4.70-6.10)
[2019-05-08 06:33] LABS: ALT (SGPT) 28 U/L (8-55); AST (SGOT) 22 U/L (5-34); Albumin 3.6 g/dL (3.5-5.0); Alkaline Phosphatase 71 U/L (40-110); Anion Gap 12 mmol/L (10-20); BUN (Urea Nitrogen) 10 mg/dL (8.4-25.7); Bilirubin, Total 0.8 mg/dL (0.2-1.2); Calc. Creatinine Clearance 104 mL/min (70-130); Calcium 8.6 mg/dL (7.8-10.44); Carbon Dioxide 24 mmol/L (22-29); Chloride 102 mmol/L (98-107); Estimated GFR-MDRD Greater than 90; Globulin 2.8 g/dL (2.4-3.5); Glucose 155 mg/dL (70-105); Potassium 4.2 mmol/L (3.5-5.1); Protein, Total 6.4 g/dL (6.0-8.3); Sodium 134 mmol/L (136-145)
[2019-05-08] MEDS ORDERED: FLU VACC QS2019-20(6MOS UP)/PF 60 MCG/0.5 ML SYRINGE IM ONE (09:00)
[2019-05-08] MEDS: Famotidine/PF 20 mg/2ml Vial SLOW IVP SCH ×2 (09:50→19:56)
[2019-05-08] MEDS: Enoxaparin Sodium 40 MG/0.4 ML SYRINGE SC SCH (09:51)
--- NOTE | 2019-05-08 13:42 | PDOC.GSPN ---
Surgery Progress Note: Subj - Subjective Narrative: Mr. Florence is POD #1, after colostomy reversal and ventral hernia repair. He is recovering well from surgery with no pain. He is NPO with no associated N/V. He has not ambulated since his surgery. He is not having flatus. He admitted to having an appetite this morning. Denied any fever, chills, SOB, CP, HAs, lightheadedness, dizziness. Surgery Progress Note: Obj - Vital signs Vital signs: Vital Signs - Most Recent Temp Pulse Resp BP Pulse Ox 97.5 F L 92 16 128/79 96 05/08/19 11:56 05/08/19 13:18 05/08/19 13:18 05/08/19 11:56 05/08/19 13:18 - Physical Exam General: no distress, well developed, well nourished Neck: no masses, other (FROM) Cardiovascular: regular rate and rhythm Respiratory: clear to auscultation, normal expansion, normal respiratory effort , breath sounds present Abdomen: soft, non tender, nondistended, positive bowel sounds Integumentary: no abnormal pigmentation, no growths, no rash Psychiatric: memory intact, oriented to time, oriented to person, oriented to place, speech is normal Wound: dressing clean,dry,intact (Dressing had to be changed overnight due to excessive drainage. Nurse in the room said she was going to change it again today, and keep a close eye on it.), healing well Surgery Progress Note: Results - Labs Result Diagrams: 05/08/19 06:01 05/08/19 06:01 Lab results: Laboratory Results - last 24 hr 05/08/19 05/08/19 05/08/19 05:05 06:01 06:01 WBC 16.0 H RBC 4.14 L Hgb 13.3 L Hct 38.5 L MCV 93.0 MCH 32.1 H MCHC 34.4 RDW 12.2 Plt Count 235 MPV 7.7 Neutrophils % 86.7 H Lymphocytes % 6.1 L Monocytes % 7.1 Eosinophils % 0.1 Basophils % 0.0 Neutrophils # 13.9 H Lymphocytes # 1.0 L Monocytes # 1.1 H Eosinophils # 0.0 Basophils # 0.0 Sodium 134 L Potassium 4.2 Chloride 102 Carbon Dioxide 24 Anion Gap 12 BUN 10 Creatinine 0.86 Estimated GFR (MDRD) Greater than 90 Glucose 155 H POC Glucose 148 H Calcium 8.6 Total Bilirubin 0.8 AST 22 ALT 28 Alkaline Phosphatase 71 Serum Total Protein 6.4 Albumin 3.6 Globulin 2.8 Albumin/Globulin Ratio 1.3 05/08/19 11:58 WBC RBC Hgb Hct MCV MCH MCHC RDW Plt Count MPV Neutrophils % Lymphocytes % Monocytes % Eosinophils % Basophils % Neutrophils # Lymphocytes # Monocytes # Eosinophils # Basophils # Sodium Potassium Chloride Carbon Dioxide Anion Gap BUN Creatinine Estimated GFR (MDRD) Glucose POC Glucose 138 H Calcium Total Bilirubin AST ALT Alkaline Phosphatase Serum Total Protein Albumin Globulin Albumin/Globulin Ratio - Radiology Interpretation Abdominal x-ray Status: image reviewed by me, report reviewed by me Additional comments: Correct placement of NG and Dobhoff tubes. Surgery Progress Note: A/P - Problem (1) Status post surgery Current Visit: Yes Code(s): Z98.890 - OTHER SPECIFIED POSTPROCEDURAL STATES Status: Acute Assessment and Plan: Patient is POD #1 from Alexys's procedure reversal and ventral hernia repair. He is recovering extremely well from his surgery. Patient did not have any complaints, and his pain is negligible. Tate still in place. Labs showed elevated WBC but it could be leukemoid reaction from surgery. ARJUN put out 85 mL of sanguinous fluid. Rest of his labs were within normal limits with exception of mild anemia, which could also be attributed to surgery. I personally examined this patient at bedside with Dr. Arreola 1. Patient must remain NPO today but he can have a few ice chips. 2. Tate remains in place. Will d/c tomorrow. 3. Patient must start walking today at least 3 times per day, and sit in a chair instead of lay in bed for the majority of the day. 4. Continue IS and coughing to prevent atelectasis. 5. Start DVT prophylaxis with Lovenox 6. f/u morning CBC with differential. 7. Continue Mefoxin
[2019-05-08 18:11] VITALS: BMI 27.5
--- NOTE | 2019-05-08 23:54 | PRG ---
DATE OF SERVICE: 05/08/2019 SUBJECTIVE: The patient was seen this evening during rounds. He was sitting up in bed, no signs of acute distress. He is postoperative day 1 after ex-lap adhesiolysis, ventral hernia, herniorrhaphy, appendectomy, and colostomy takedown with colorectal anastomosis. The patient is resting comfortably in bed and has no complaints. Reports ambulating multiple times a day. OBJECTIVE: VITAL SIGNS: Temperature 98.5, pulse 100, respirations 16, oxygen saturation 94% on 0.5 L nasal cannula, blood pressure 154/84. GENERAL: Well-appearing male, lying in bed with no signs of acute distress. PULMONARY: Equal chest rise and fall. Clear breath sounds bilaterally. No signs of acute respiratory distress. CARDIAC: Regular rate and rhythm. No murmurs, gallops, or rubs. GI: Abdomen is soft, appropriately tender to palpation. Nondistended. Abdominal wound is clean, dry, and intact. NEURO: GCS is 15. EXTREMITIES: 2+ pulses in all extremities. Gross motor sensation is intact. ASSESSMENT: Status post postop day 1 after colostomy reversal, appendectomy, and ventral hernia repair. PLAN: We will discontinue the Tate tonight and start a void trial. The patient has been ambulating without difficulties. He has no known history of BPH. Continue ambulation. Continue SCDs and Lovenox. Continue IV antibiotics and pain control as previously recommended. The patient will likely be able to go home as soon as he has return of bowel function. Job ID: [id number]
[2019-05-09] MEDS: Acetaminophen 1,000 MG in Premix Bag 1 BAG IVPB SCH ×3 (01:08→14:23)
[2019-05-09 05:12] LABS: Hemoglobin 12.4 g/dL (14.0-18.0); Lymphocytes 20 % (21-51); MDiff Complete? YES; Mean Corpuscular HGB CONC 33.8 g/dL (32.0-36.0); Mean Corpuscular Hemoglobin 31.8 pg (27.0-31.0); Mean Platelet Volume 8.1 fL (7.4-10.4); Monocytes 9 % (0-10); Neutrophil 71 % (42-75); Platelet Count 224 thou/uL (130-400); Platelet Morphology Comment Appears Adequate; RBC Distribution Width 12.2 % (11.5-14.5); Red Blood Cell (RBC) Count 3.91 mill/uL (4.70-6.10); White Blood Cell (WBC) Count 10.9 thou/uL (4.8-10.8)
[2019-05-09] MEDS: Sodium Chloride 0.9% 1,000 ML IV SCH ×4 (06:04→20:29)
[2019-05-09] MEDS: cefOXitin 2 GM in Sodium Chloride 0.9% 100 ML IVPB SCH ×3 (06:06→21:23)
[2019-05-09] MEDS: Enoxaparin Sodium 40 MG/0.4 ML SYRINGE SC SCH (08:15)
[2019-05-09] MEDS: Famotidine/PF 20 mg/2ml Vial SLOW IVP SCH (08:16)
[2019-05-09] MEDS: Lisinopril 10 MG TAB PO SCH (10:29)
--- NOTE | 2019-05-09 11:52 | PRG ---
DATE OF SERVICE: 05/09/2019 This is Bunny Mondragon PA-C dictating a report for Christiano Arreola DO. SUBJECTIVE: The patient is currently on the surgical floor. He is postop day #2, status post exploratory laparotomy, adhesiolysis, ventral hernia, herniorrhaphy, appendectomy, and colostomy takedown with colorectal anastomosis. The patient is on trickle feeds via Dobbhoff feeding tube and also has a nasogastric tube in his stomach. The patient has been ambulating with physical therapy. His pain is controlled and has not had significant residuals with his tube. There is a trickle tube feeds. OBJECTIVE: VITAL SIGNS: Temperature is 98.6, heart rate 86, blood pressure 151/88, respirations 14, and oxygen saturations 100% on room air. GENERAL: The patient is resting comfortably in bed. He is awake, alert, and oriented. LUNGS: Clear to auscultation with good inspiratory and expiratory effort. HEART: Regular rate and rhythm. ABDOMEN: Soft. His abdominal dressing was changed, was having some blood on the gauze. The kilo were intact and functioning properly. The patient had hypoactive bowel sounds. EXTREMITIES: Neurovascularly intact x4. LABORATORY FINDINGS: White blood cell count 10.9 down from 16, hemoglobin 12.4, hematocrit 36.8, and platelets 224. There are no radiographs reviewed this morning. ASSESSMENT AND PLAN: Postop day 2, status post colostomy reversal with appendectomy and ventral hernia repair. Plan will be to continue encouraging ambulation and await bowel function return. We will continue to have a trickle rate on his tube feeds today. His NG tube was irrigated to ensure proper function on this morning also. Evaluation and examination were done with Dr. Arreola during rounds today. Job ID: [id number]
[2019-05-09] MEDS ORDERED: Acetaminophen 500 MG TAB PO PRN (14:35)
[2019-05-09] MEDS: Acetaminophen 500 MG TAB PO SCH (20:29)
--- NOTE | 2019-05-10 00:41 | PRG ---
DATE OF SERVICE: 05/09/2019 SUBJECTIVE: The patient was seen this evening during rounds, lying in bed comfortably, asleep. He was easily arousable when the NG tube was flushed to maintain its function. Reported no issues and no complaints. OBJECTIVE: VITAL SIGNS: Temperature 98.8, pulse 98, respirations 16, oxygen saturation 92% on room air, blood pressure 131/84. GENERAL: Well-appearing middle-aged male, sitting up in bed with no signs of acute distress. PULMONARY: Equal chest rise and fall. Clear breath sounds bilaterally. No signs of acute respiratory distress. CARDIAC: Regular rate and rhythm. No murmurs, gallops, or rubs. GASTROINTESTINAL: Abdomen is soft, nontender, nondistended. EXTREMITIES: 2+ pulses in all extremities. No significant swelling noted. Gross motor and sensation intact. ASSESSMENT: Postop day 2 status post colostomy reversal with appendectomy and ventral hernia repair. PLAN: We will continue the patient's diet and pain regimen overnight. Continue to flush NG tube as needed for proper functioning. We will not advance his diet at this time and continue to re-evaluate him daily. The patient will likely be able to be discharged home when he is tolerating a diet and have signs of return of bowel function. Job ID: [id number]
[2019-05-10] MEDS: Acetaminophen 500 MG TAB PO SCH ×4 (02:08→20:31)
[2019-05-10] MEDS: cefOXitin 2 GM in Sodium Chloride 0.9% 100 ML IVPB SCH (05:43)
[2019-05-10] MEDS: Enoxaparin Sodium 40 MG/0.4 ML SYRINGE SC SCH (09:08)
[2019-05-10] MEDS: Lisinopril 10 MG TAB PO SCH (09:08)
--- NOTE | 2019-05-10 11:31 | PRG ---
DATE OF SERVICE: SUBJECTIVE: The patient remains on the surgical floor. He is postop day 3, status post exploratory laparotomy, adhesiolysis, ventral hernia, herniorrhaphy, appendectomy, and colostomy takedown with colorectal anastomosis. The patient had no issues overnight. He is tolerating his trophic feeds via his Dobbhoff tube. NG tube drainage was noted to be just over 1 L. The patient is making good urinary output. His pain is controlled and he has been ambulating. OBJECTIVE: VITAL SIGNS: Temperature 98.0, heart rate 86, blood pressure 124/77, respirations 18, oxygen saturation 93% on room air. GENERAL: The patient is resting comfortably in bed. He is awake, alert, and appropriate. LUNGS: Clear to auscultation with good inspiratory and expiratory effort. HEART: Regular rate and rhythm. ABDOMEN: Soft, nondistended with minimal tenderness. No peritoneal signs are noted. His midline dressing is clean, dry, and intact and he does have active bowel sounds. ARJUN drain is stripped and had a total output of 35 mL. LABORATORY DATA: There are no labs or radiographs reviewed this morning. ASSESSMENT AND PLAN: Postop day 3, status post colostomy reversal with appendectomy and ventral hernia repair. PLAN: Plan will be to continue supportive care. Encourage ambulation. We will increase his tube feeds to 30 mL/h and await his bowel function to return. The patient was evaluated this morning with Dr. Arreola. Job ID: [id number]
[2019-05-10] MEDS: Sodium Chloride 0.9% 1,000 ML IV SCH ×2 (12:35→20:30)
--- NOTE | 2019-05-10 22:10 | PRG ---
DATE OF SERVICE: 05/10/2019 SUBJECTIVE: The patient was seen this evening, resting comfortably in bed. His NG tube had been discontinued earlier today and patient was given a clear liquid diet. Reported tolerating his diet, ambulating and passing flatus. Tube feeds at 30 an hour. OBJECTIVE: VITAL SIGNS: Temperature 99, pulse 93, respirations 16, oxygen saturation 93% on room air, and blood pressure 138/85. GENERAL: Well-appearing middle-aged male, lying in bed with no signs of acute distress. PULMONARY: Equal chest rise and fall. Clear breath sounds bilaterally. No signs of acute respiratory distress. CARDIAC: Regular rate and rhythm. No murmurs, gallops, or rubs. GI: Abdomen is soft, appropriately tender to palpation, nondistended. Right-sided ARJUN drain in place with serosanguineous output. EXTREMITIES: 2+ pulses in all extremities. No significant swelling noted. Gross motor and sensation are intact. ASSESSMENT: Postop day 3 status post colostomy reversal with appendectomy and ventral hernia repair. PLAN: Continue current clear liquid diet and tube feeds at 30 an hour. Encouraged ambulation. Continue current pain control. The patient will likely be able to be discharged home when he is tolerating a regular diet and has continued return of bowel function. Job ID: [id number]
--- NOTE | 2019-05-10 22:56 | EKG ---
Test Reason : PREOP Blood Pressure : / mmHG Vent. Rate : 090 BPM Atrial Rate : 090 BPM P-R Int : 136 ms QRS Dur : 098 ms QT Int : 334 ms P-R-T Axes : 020 006 -02 degrees QTc Int : 408 ms Normal sinus rhythm Nonspecific T wave abnormality Abnormal ECG When compared with ECG of 18-SEP-2018 16:34, Nonspecific T wave abnormality, improved in Lateral leads Confirmed by El MURILOL ([id number]) on 05/10/2019 10:56:02 PM Referred By: ANDREW Confirmed By:El MURILLO
[2019-05-11] MEDS: Sodium Chloride 0.9% 1,000 ML IV SCH (00:30)
[2019-05-11] MEDS: Acetaminophen 500 MG TAB PO SCH ×4 (00:56→19:56)
[2019-05-11 04:48] LABS: #Eosinphils 0.2 thou/uL (0.0-0.7); #Lymphocytes 1.3 thou/uL (1.20-3.40); #Monocytes 0.6 thou/uL (0.11-0.59); #Neutrophils 5.4 thou/uL (1.40-6.50); %Basophils 0.4 % (0.0-1.0); %Lymphocytes 17.3 % (21.0-51.0); %Monocytes 7.2 % (0.0-10.0); Hemoglobin 13.3 g/dL (14.0-18.0); Mean Corpuscular HGB CONC 34.7 g/dL (32.0-36.0); Mean Corpuscular Hemoglobin 32.5 pg (27.0-31.0); Mean Corpuscular Volume 93.6 fL (78.0-98.0); Mean Platelet Volume 7.7 fL (7.4-10.4); Platelet Count 264 thou/uL (130-400); RBC Distribution Width 12.2 % (11.5-14.5); Red Blood Cell (RBC) Count 4.09 mill/uL (4.70-6.10); White Blood Cell (WBC) Count 7.5 thou/uL (4.8-10.8)
[2019-05-11 05:10] LABS: Anion Gap 13 mmol/L (10-20); BUN (Urea Nitrogen) 8 mg/dL (8.4-25.7); Calc. Creatinine Clearance 131 mL/min (70-130); Calcium 9.1 mg/dL (7.8-10.44); Carbon Dioxide 21 mmol/L (22-29); Chloride 102 mmol/L (98-107); Estimated GFR-MDRD Greater than 90; Glucose 148 mg/dL (70-105); Magnesium 1.8 mg/dL (1.6-2.6); Phosphorus 3.1 mg/dL (2.3-4.7); Potassium 3.3 mmol/L (3.5-5.1); Sodium 133 mmol/L (136-145)
[2019-05-11] MEDS: Lisinopril 10 MG TAB PO SCH (08:52)
[2019-05-11] MEDS: Enoxaparin Sodium 40 MG/0.4 ML SYRINGE SC SCH (08:54)
[2019-05-11] MEDS ORDERED: Potassium Chloride 20 MEQ TAB PO SCH (21:30)
--- NOTE | 2019-05-11 21:39 | PRG ---
DATE OF SERVICE: 05/11/2019 SUBJECTIVE: The patient remains on the surgical floor. He is postop day 4, status post exploratory laparotomy, adhesiolysis, ventral hernia, herniorrhaphy, appendectomy, and colostomy takedown with colorectal anastomosis. The patient had his NG tube discontinued yesterday. He had no issues overnight. He was tolerating clear liquid diet. He has had two bowel movements this morning. OBJECTIVE: VITAL SIGNS: Temperature is 98.3, heart rate 88, blood pressure 125/83, respirations 16, oxygen saturation 97% on room air. GENERAL: The patient is resting comfortably in bed. He is awake, alert, conversant. HEENT: Unremarkable. LUNGS: Clear to auscultation with good inspiratory and expiratory effort. The patient is able to get above 1500 on his incentive spirometer. HEART: Regular rate and rhythm. ABDOMEN: Soft, nontender with active bowel sounds. Midline incision. The dressing is clean, dry, and intact. It was changed today. EXTREMITIES: Remains neurovascularly intact x4. LABORATORY FINDINGS: White blood cell count 7.5, hemoglobin 13.3, hematocrit 38.3, platelets 264. Sodium 133, potassium 3.3, chloride 102, CO2 of 21, BUN 8, creatinine 0.68, glucose 148, magnesium 1.8, phosphorus 3.1. DIAGNOSTIC DATA: There are no radiographs reviewed this morning. ASSESSMENT: Status post colostomy reversal with appendectomy and ventral hernia repair, postop day 4. PLAN: Plan will be to discontinue his Dobhoff feeding tube. Allow him to full liquids and we will advance him in the morning to a regular diet as long as he has no issues. The patient will likely be able to be discharged home as long as he tolerates his diet and his pain is controlled tomorrow afternoon. Job ID: [id number]
--- NOTE | 2019-05-12 00:01 | PRG ---
DATE OF SERVICE: SUBJECTIVE: Patient was seen this evening during rounds. He was lying in bed with no signs of acute distress. Reported he had a bowel movement today and he is tolerating his diet. Denies nausea, vomiting, or diarrhea. OBJECTIVE: VITAL SIGNS: Temperature 98.8, pulse 96, respirations 16, oxygen saturation 92% on room air, and blood pressure 122/78. GENERAL: Well-appearing middle-aged male, lying in bed with no signs of acute distress. PULMONARY: Equal chest rise and fall. Clear breath sounds bilaterally. No signs of acute respiratory distress. CARDIAC: Regular rate and rhythm. No murmurs, gallops, or rubs. ABDOMEN: Soft, nontender, and nondistended. EXTREMITIES: 2+ pulses in all extremities. No significant swelling noted. Gross motor and sensation intact. ASSESSMENT: Postop day #4 status post colostomy reversal and appendectomy with ventral hernia repair. Patient will continue his full liquid diet this evening and will be advanced to a regular diet for breakfast tomorrow. Continue to encourage ambulation. Patient will likely be discharged once he is able to tolerate a regular diet. He will be able to go home. Job ID: [id number]
[2019-05-12] MEDS: Acetaminophen 500 MG TAB PO SCH ×2 (02:46→08:12)
[2019-05-12 04:53] LABS: Anion Gap 12 mmol/L (10-20); BUN (Urea Nitrogen) 8 mg/dL (8.4-25.7); Calc. Creatinine Clearance 124 mL/min (70-130); Carbon Dioxide 25 mmol/L (22-29); Chloride 102 mmol/L (98-107); Estimated GFR-MDRD Greater than 90; Glucose 110 mg/dL (70-105); Potassium 3.7 mmol/L (3.5-5.1); Sodium 135 mmol/L (136-145)
[2019-05-12] MEDS: Enoxaparin Sodium 40 MG/0.4 ML SYRINGE SC SCH (08:13)
[2019-05-12] MEDS: Lisinopril 10 MG TAB PO SCH (08:13)
[2019-05-12 11:37] VITALS: BP 117/75; TEMP 98.4
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
--- NOTE | 2019-05-15 03:33 | PQF ---
[employer] Isamar ROMAINE FELIPE FELIXKRISTI POWER [id number] CLINICAL DOCUMENTATION CLARIFICATION FORM: POST DISCHARGE Addendum to original discharge summary date: ____ Late entry note date: __ DATE:05/15/19 ATTN: Kristi Phelps Please exercise your independent, professional judgment in responding to the clarification form. Clinical indicators are provided on the bottom of this form for your review Can you please further specify the specificity of anemia based on the clinical indicators below? Please check appropriate box(s): [ ] Acute blood loss anemia [ x ] Post-op anemia related to acute blood loss [ ] Anemia unspecified [ ] Other diagnosis please specify [ ] Unable to determine For continuity of documentation, please document condition throughout progress notes and discharge summary. Thank You. CLINICAL INDICATORS - SIGNS / SYMPTOMS / LABS General Surgery PN 05/08 Dr. Arreola pg.4- mild anemia, which could be attributed to surgery Laboratory- HCT 38.5L, 36.8L, 38.3L Laboratory- HGB 13.3L, 12.4L, 13.3L DS pg.1- For colostomy takedown and colorectal anastomosis General Surgery PN 05/08 Dr. Arreola pg.4- ARJUN out put 85ml of sanguinous fluid OP Note 05/07 - EBL:200ml Laboratory- RBC 05/08:4.14 05/09:3.91 05/11:4.09 RISK FACTORS S/p colostomy reversal appendectomy, and hernia repair- PN 05/[address] Barr TREATMENTS: IV Fluids- MAR 05/07 H and H monitoring- Laboratory (This form is maintained as a part of the permanent medical record) 2014 [employer]. All Rights Reserved [email or web address] [not [email or web address]] [email or web address]
== END 2019-05-12 14:45 | disposition home or self-care (01) | DRG 330 ==
LOC: SURG A 09:34
PROVIDERS: ADMIT Surgery; ATTEND Surgery
PROC: 0DBM0ZZ Excision of Descending Colon, Open Approach (ICD-10-PCS; principal; 2019-05-07)
PROC: 0DNW0ZZ Release Peritoneum, Open Approach (ICD-10-PCS; 2019-05-07)
PROC: 0DTJ0ZZ Resection of Appendix, Open Approach (ICD-10-PCS; 2019-05-07)
PROC: 0WQF0ZZ Repair Abdominal Wall, Open Approach (ICD-10-PCS; 2019-05-07)
PROC: 0DSM0ZZ Reposition Descending Colon, Open Approach (ICD-10-PCS; 2019-05-07)
PROC: 3E02340 Introduction of Influenza Vaccine into Muscle, Percutaneous Approach (ICD-10-PCS; 2019-05-07)
DX: Z43.3 Encounter for attention to colostomy (principal); D62 Acute posthemorrhagic anemia; K43.2 Incisional hernia without obstruction or gangrene; K43.9 Ventral hernia without obstruction or gangrene; K66.0 Peritoneal adhesions (postprocedural) (postinfection); D64.9 Anemia, unspecified; Z79.899 Other long term (current) drug therapy; Z23 Encounter for immunization
CPT/HCPCS: 36415; 36416; 74018; 80048; 80053; 83036; 83735; 84100; 85007; 85025; 85027; 86850; 86900; 86901; 88302; 88304; 93005; 93010; 94640; J0131; J0670; J0694; J0696; J1100; J1650; J1885; J2001; J2250; J2405; J2704; J3010; J3490; J7620; S0028